=== PATIENT | male | born 1950 | race Two or more races ===

== ENCOUNTER 2022-04-30 08:36 | Inpatient (IN) | payer OTHER ==
[~2022-04-30] VITALS: Ht 152.4 cm; Wt 45.4 kg
[2022-04-30] MEDS ORDERED: EQUETRO200 MG (08:52)
[2022-04-30] MEDS ORDERED: CLONAZEPAM1 MG PO (08:53)
[2022-04-30] MEDS ORDERED: LITHOBID300 M1 PO (08:53)
[2022-04-30] MEDS ORDERED: IPRATROPIU0.2 MG/1 M IH (08:55)
== END 2022-05-27 20:41 | disposition home or self-care (01) | DRG 178 ==
LOC: ER 08:36 → SEC-K 05-01 20:33 → MEDI 05-01 20:33 → MEDJ 05-01 20:33 → MEDI 05-02 10:26 → MEDJ 05-06 13:11
PROVIDERS: ADMIT Internal Medicine; ATTEND Internal Medicine
PROC: 4A033R1 Measurement of Arterial Saturation, Peripheral, Percutaneous Approach (ICD-10-PCS; principal; 2022-05-02)
PROC: 3E0F7GC Introduction of Other Therapeutic Substance into Respiratory Tract, Via Natural or Artificial Opening (ICD-10-PCS; 2022-05-03)
PROC: 0DJ08ZZ Inspection of Upper Intestinal Tract, Via Natural or Artificial Opening Endoscopic (ICD-10-PCS; 2022-05-23)
PROC: 0DH60UZ Insertion of Feeding Device into Stomach, Open Approach (ICD-10-PCS; 2022-05-24)
PROC: 3E0G76Z Introduction of Nutritional Substance into Upper GI, Via Natural or Artificial Opening (ICD-10-PCS; 2022-05-24)
DX: J69.0 Pneumonitis due to inhalation of food and vomit (principal); E87.0 Hyperosmolality and hypernatremia; R13.19 Other dysphagia; E86.0 Dehydration; R54 Age-related physical debility; E87.8 Other disorders of electrolyte and fluid balance, not elsewhere classified; R13.14 Dysphagia, pharyngoesophageal phase; Z20.822 Contact with and (suspected) exposure to COVID-19